=== PATIENT | male | born 1960 | race Caucasian/White ===

== ENCOUNTER 2016-06-11 15:33 | Emergency (ER) | payer BC, OTHER ==
[~2016-06-11] VITALS: Ht 182.9 cm; Wt 123.0 kg
[2016-06-11 15:46] VITALS: BP 133/82; PULSE 100; RESP 16; TEMP 97.8; O2SAT 98
[2016-06-11 15:53] VITALS: BP 133/82; PULSE 98; RESP 16; O2SAT 95
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
[2016-06-11] MEDS ORDERED: TETANUS/DIPHTHERIA TOXOID ADULT 0.5 ML VIAL IM ONE (16:00)
[2016-06-11] MEDS ORDERED: LIDOCAINE 1%/EPINEPHrine 1:100,000 SOLN 20 ML VIAL INFIL ONE (16:00)
[2016-06-11] MEDS ORDERED: SODIUM CHLORIDE 0.9% FLUSH 5 ML FLUSH IVF PRN (16:00)
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
[2016-06-11] MEDS ORDERED: MOTR200T4 PO (17:20)
[2016-06-11] MEDS ORDERED: CYCL1TAB29 PO (17:31)
--- NOTE | 2016-06-12 14:41 | EKG ---
Date Performed: 06/11/2016 Time Performed: 17:00:24 PTAGE: 55 years EKG: SINUS TACHYCARDIA NONSPECIFIC T-WAVE ABNORMALITY ABNORMAL ECG NO PREVIOUS TRACING DOCTOR: Srinivas Jennings Interpretating Date/Time 06/12/2016 14:40:03
== END 2016-06-11 19:02 | disposition home or self-care (01) ==
LOC: NEPE 15:33
DX: S51.012A Laceration without foreign body of left elbow, initial encounter (principal); S40.212A Abrasion of left shoulder, initial encounter; S80.212A Abrasion, left knee, initial encounter; M25.552 Pain in left hip; R51 Headache; R42 Dizziness and giddiness; R94.31 Abnormal electrocardiogram [ECG] [EKG]; Z23 Encounter for immunization; Z72.0 Tobacco use; V29.88XA Motorcycle rider (driver) (passenger) injured in other specified transport accidents, initial encounter; Y92.410 Unspecified street and highway as the place of occurrence of the external cause
CPT/HCPCS: 70450; 72125; 72170; 73030; 73080; 73564; 90471; 90714; 93005